=== PATIENT | male | born 2000 ===

== ENCOUNTER 2022-10-02 09:30 | Emergency (ER) | payer BC, SELFPAY ==
[2022-10-02 10:17] VITALS: BP 151/101; PULSE 99; RESP 14; TEMP 36.7; O2SAT 99; BMI 37.7
--- NOTE | 2022-10-02 10:32 | ED_ITS ---
HPI - Skin/Abscess/Foreign Bdy General Chief complaint: Skin/Abscess/Foreign Body Stated complaint: Lt Thumb Laceration Time Seen by Provider: 10/02/22 10:30 Source: patient Mode of arrival: Ambulatory Limitations: no limitations History of Present Illness HPI narrative: This is a 21-year-old male who had a laceration to his left thumb, he was working with a mixer blender blade and accidentally cut himself. He denies any medical issues. His tetanus is up-to-date. States it bled a little. He states feels slightly different. He has normal range of motion. He denies any other injuries. Related Data Home Medications Medication Instructions Recorded Confirmed No Known Home Medications 10/02/22 10/02/22 Allergies Allergy/AdvReac Type Severity Reaction Status Date / Time amoxicillin Allergy Severe Hives Verified 10/02/22 10:22 Review of Systems Review of Systems ROS Unobtainable: All systems reviewed & are unremarkable except as noted in HPI and below Patient History Social History Smoking Status: Never smoker Smoking Status: Never smoker alcohol intake frequency: 0-2 drinks per day Substance Use Type: does not use Exam Narrative Exam Narrative: GENERAL: Alert and oriented x three, well nourished male in no acute distress. HEENT: Head normocephalic, atraumatic, EOMI, pupils reactive, face symmetric, moist mucous membranes NECK: Supple, full range of motion EXTREMITIES: Normal range of motion, no clubbing or edema. Neurovascularly intact. Patient has a 2.3 cm laceration that is a flap on the radial side of his left thumb does not involve the nail is about 3 mm lateral to that, there is some slight gap edge on the portion adjacent to the nail, the rest is very well aligned and not gapping even with movement. Patient unable to lift or flap the avulsion. He is intact sensation and vascularly. NEUROLOGICAL: Cranial nerves II through XII grossly intact. Moving all extremities SKIN: Warm, dry, no petechiae, no rashes or lesions. Initial Vital Signs Initial Vital Signs: Vital Signs Temperature 98.0 F 10/02/22 10:17 Pulse Rate 99 H 10/02/22 10:17 Respiratory Rate 14 10/02/22 10:17 Blood Pressure 151/101 H 10/02/22 10:17 Pulse Oximetry 99 10/02/22 10:17 Oxygen Delivery Method 10/02/22 10:17 Course Vital Signs Vital signs: Vital Signs - 8 hr 10/02/22 10:17 Temperature 98.0 F Pulse Rate 99 H Respiratory Rate 14 Blood Pressure 151/101 H Pulse Oximetry 99 Oxygen Delivery Method Room Air MDM - Skin/Abscess/Foreign Bdy MDM Narrative Medical decision making narrative: Patient seen evaluated by myself area was cleansed, after full evaluation discussed could put 1 or 2 stitches at the most gapped portion but would be quite amenable to Dermabond and Steri-Strips, patient elects for Dermabond and Steri-Strips I do feel this will heal appropriately. He does not have any medical issues or changes that necessitate antibiotics at this time. Return precautions. All questions answered. Discharge Plan Departure Patient Disposition: Home Clinical Impression: Laceration of left thumb Instructions: DI for Laceration Repair-Skin Glue Activity Restrictions/Additional Instructions: Please follow-up for recheck if your laceration has not healed in the next 7-10 days. You can take Tylenol and/or ibuprofen as needed for pain. Wound Care: Keep wound(s) clean and dry. Wash daily with soap and water only. Do not use over the counter products (alcohol or peroxide)on the wounds unless instructed by a physician. Triple antibiotic ointment and petroleum based products will break down the Dermabond so do not use these over the area of laceration until healed. Allow Steri-Strips to peel away you can trim the edges. If wound condition worsens (increased/expanding redness, developing fluid blisters, or worsening pain), either contact your doctor for an urgent re- assessment , or return to the Emergency Department. Return if fever greater than 100.4 Fahrenheit, increased swelling, increasing pain or worsening symptoms such as increased discharge or spreading redness. Prescriptions: No Action No Known Home Medications Referrals: Alyx,Doctor MD [Primary Care Provider] - Visit Report Forms: Patient Portal/API
--- NOTE | 2022-10-02 11:47 | PC.NURSE ---
soaked, wound dressed w/ dermabond and steri strips.
== END 2022-10-02 12:03 | disposition home or self-care (01) ==
PROVIDERS: Emergency Provider Emergency Medicine
DX: S61.012A Laceration without foreign body of left thumb without damage to nail, initial encounter (principal); W26.8XXA Contact with other sharp object(s), not elsewhere classified, initial encounter
CPT/HCPCS: 99281